=== PATIENT | male | born 1940 ===

== ENCOUNTER 2021-01-28 17:29 | Inpatient (IN) ==
[2021-01-28] MEDS ORDERED: Dexamethasone IV 4 MG/ML VIAL 1 ml VIAL IV SLOW PU ONE (17:43)
[2021-01-28] MEDS ORDERED: Al Hydrox/Mg Hydrox/Simet LIQ 30 ML UDC PO PRN (18:28)
[2021-01-28] MEDS ORDERED: Magnesium Hydroxide LIQ 30 ML UDC PO PRN (18:28)
[2021-01-28] MEDS ORDERED: Remdesivir 100 mg Vial 200 MG in NS 0.9% 250 ml 210 ML IV ONE (18:46)
[2021-01-28] MEDS ORDERED: Heparin 5000 UNITS/ML 1 mL VIAL SUBCUT SCH (22:00)
[2021-01-28 22:47] LABS: ABS Lymphocytes 0.4 10^3/ul (1.0-4.8); ABS Monocytes 0.1 10^3/ul (0-0.8); ABS Neutrophils 3.3 10^3/ul (1.5-7.7); Hematocrit 28 % (42-52); Hemoglobin 9.7 g/dL (14.0-18.0); Lymphocyte % 11.3 %; Mean Corpuscular HGB Conc 34 g/dL (31-36); Mean Corpuscular Hemoglobin 34 pg (27-31); Mean Corpuscular Volume 99 fL (80-94); Mean Platelet Volume 9.3 fL (7.4-10.4); Platelet Count 112 10^3/uL (150-450); Red Blood Count 2.87 10^6 /uL (4.18-5.48); Red Cell Distribution Width 14 % (10-15); White Blood Count 3.9 10^3/uL (3.5-10.8)
[2021-01-28 22:56] LABS: Activated Partial Thrombo Time 29.3 seconds (26.0-38.0); INR 1.09 (0.82-1.09)
[2021-01-28 23:03] LABS: ALT 15 U/L (7-52); AST 29 U/L (13-39); Albumin 3.5 g/dL (3.2-5.2); Albumin/Globulin Ratio 1.3 (1-3); Alkaline Phosphatase 75 U/L (34-104); Blood Urea Nitrogen 82 mg/dL (6-24); C Reactive Protein 47.54 mg/L (<8.01); CO2 Carbon Dioxide 23 mmol/L (22-32); Calcium 9.4 mg/dL (8.6-10.3); Chloride 103 mmol/L (101-111); EGFR African American 16.9 (>60); Globulin 2.7 g/dL (2-4); Glucose 174 mg/dL (70-100); LDH 197 U/L (140-271); Sodium 136 mmol/L (135-145); Total Protein 6.2 g/dL (6.4-8.9)
[2021-01-28 23:09] LABS: Anion Gap 10 mmol/L (2-11); Potassium 5.4 mmol/L (3.5-5.0)
[2021-01-28 23:22] LABS: Ferritin 157.1 ng/mL (24-336); Troponin I 0.05 ng/mL (<0.03)
[2021-01-28 23:36] LABS: Urine Appearance Clear; Urine Bilirubin Negative (Negative); Urine Blood 2+ (Negative); Urine Color Straw; Urine Glucose Negative (Negative); Urine Ketones Negative (Negative); Urine Nitrite Negative (Negative); Urine Protein 1+(30 mg/dL) (Negative); Urine Specific Gravity 1.009 (1.002-1.030); Urine Urobilinogen Negative (Negative)
[2021-01-28 23:52] LABS: Urine Bacteria 1+ (Absent); Urine Red Blood Cell Trace(0-2/hpf) (Absent); Urine White Blood Cell Trace(0-5/hpf) (Absent)
[2021-01-29] MEDS: Nystatin TOP POWDER 15 GM BTL TOPICAL SCH ×3 (01:52→20:48)
[2021-01-29 03:05] LABS: ABS Lymphocytes 0.6 10^3/ul (1.0-4.8); ABS Monocytes 0.1 10^3/ul (0-0.8); ABS Neutrophils 2.6 10^3/ul (1.5-7.7); Hematocrit 31 % (42-52); Hemoglobin 10.5 g/dL (14.0-18.0); Lymphocyte % 18.5 %; Mean Corpuscular HGB Conc 34 g/dL (31-36); Mean Corpuscular Hemoglobin 34 pg (27-31); Mean Corpuscular Volume 99 fL (80-94); Mean Platelet Volume 9.5 fL (7.4-10.4); Platelet Count 128 10^3/uL (150-450); Red Cell Distribution Width 14 % (10-15); White Blood Count 3.3 10^3/uL (3.5-10.8)
[2021-01-29 03:20] LABS: Albumin 3.7 g/dL (3.2-5.2); Albumin/Globulin Ratio 1.3 (1-3); C Reactive Protein 60.03 mg/L (<8.01); Calcium 9.9 mg/dL (8.6-10.3); EGFR African American 17.8 (>60); EGFR Non-African American 14.7 (>60); Globulin 2.9 g/dL (2-4); Total Bilirubin 0.3 mg/dL (0.2-1.0); Total Protein 6.6 g/dL (6.4-8.9)
[2021-01-29 03:36] LABS: Potassium 5.5 mmol/L (3.5-5.0)
[2021-01-29 03:36] LABS: Troponin I 0.03 ng/mL (<0.03)
[2021-01-29] MEDS: Dexamethasone IV 4 MG/ML VIAL 1 ml VIAL IV SLOW PU SCH (08:11)
[2021-01-29 11:11] LABS: INR 1.13 (0.82-1.09)
[2021-01-29] MEDS ORDERED: Sodium Polystyrene ORAL.SUSP 15 GM/60 ML BTL PO ONE (16:39)
[2021-01-29] MEDS ORDERED: Remdesivir 100 mg Vial 100 MG in NS 0.9% 250 ml 230 ML IV SCH (21:00)
[2021-01-30 04:54] LABS: ABS Lymphocytes 0.6 10^3/ul (1.0-4.8); ABS Monocytes 0.4 10^3/ul (0-0.8); ABS Neutrophils 3.4 10^3/ul (1.5-7.7); Hematocrit 30 % (42-52); Hemoglobin 10.4 g/dL (14.0-18.0); Lymphocyte % 13.3 %; Mean Corpuscular HGB Conc 35 g/dL (31-36); Mean Corpuscular Hemoglobin 35 pg (27-31); Mean Corpuscular Volume 100 fL (80-94); Mean Platelet Volume 9.3 fL (7.4-10.4); Platelet Count 136 10^3/uL (150-450); Red Blood Count 3.01 10^6 /uL (4.18-5.48); Red Cell Distribution Width 14 % (10-15); White Blood Count 4.4 10^3/uL (3.5-10.8)
[2021-01-30 04:58] LABS: INR 1.1 (0.82-1.09)
[2021-01-30 05:11] LABS: Albumin 3.6 g/dL (3.2-5.2); Albumin/Globulin Ratio 1.3 (1-3); C Reactive Protein 34.68 mg/L (<8.01); Calcium 10.3 mg/dL (8.6-10.3); EGFR African American 27.1 (>60); EGFR Non-African American 22.4 (>60); Globulin 2.8 g/dL (2-4); Magnesium 1.9 mg/dL (1.9-2.7); Total Bilirubin 0.3 mg/dL (0.2-1.0); Total Protein 6.4 g/dL (6.4-8.9)
[2021-01-30] MEDS: Dexamethasone IV 4 MG/ML VIAL 1 ml VIAL IV SLOW PU SCH (08:02)
[2021-01-30] MEDS: Nystatin TOP POWDER 15 GM BTL TOPICAL SCH ×2 (08:03→20:52)
[2021-01-31 05:48] LABS: ABS Lymphocytes 0.9 10^3/ul (1.0-4.8); ABS Monocytes 0.5 10^3/ul (0-0.8); ABS Neutrophils 4.9 10^3/ul (1.5-7.7); Hematocrit 30 % (42-52); Mean Corpuscular HGB Conc 34 g/dL (31-36); Mean Corpuscular Hemoglobin 34 pg (27-31); Mean Corpuscular Volume 100 fL (80-94); Mean Platelet Volume 8.5 fL (7.4-10.4); Nucleated Red Blood Cells % 0.1; Platelet Count 154 10^3/uL (150-450); Red Blood Count 2.95 10^6 /uL (4.18-5.48); Red Cell Distribution Width 14 % (10-15); White Blood Count 6.4 10^3/uL (3.5-10.8)
[2021-01-31 05:54] LABS: INR 1.14 (0.82-1.09)
[2021-01-31 06:05] LABS: Albumin 3.4 g/dL (3.2-5.2); Albumin/Globulin Ratio 1.3 (1-3); Calcium 10.1 mg/dL (8.6-10.3); EGFR African American 33.3 (>60); EGFR Non-African American 27.5 (>60); Globulin 2.6 g/dL (2-4); Magnesium 1.9 mg/dL (1.9-2.7); Potassium 4.8 mmol/L (3.5-5.0); Total Bilirubin 0.3 mg/dL (0.2-1.0)
[2021-01-31] MEDS: Albuterol HFA INHALER 8 gm MDI INH PRN (08:20)
[2021-01-31] MEDS: Dexamethasone IV 4 MG/ML VIAL 1 ml VIAL IV SLOW PU SCH (08:22)
[2021-01-31] MEDS: Nystatin TOP POWDER 15 GM BTL TOPICAL SCH ×2 (08:34→20:49)
[2021-02-01 05:57] LABS: INR 1.19 (0.82-1.09)
[2021-02-01 06:06] LABS: Albumin 3.5 g/dL (3.2-5.2); Albumin/Globulin Ratio 1.3 (1-3); Calcium 10.1 mg/dL (8.6-10.3); EGFR African American 39.5 (>60); EGFR Non-African American 32.7 (>60); Globulin 2.6 g/dL (2-4); Total Bilirubin 0.4 mg/dL (0.2-1.0); Total Protein 6.1 g/dL (6.4-8.9)
[2021-02-01] MEDS: Dexamethasone IV 4 MG/ML VIAL 1 ml VIAL IV SLOW PU SCH (08:52)
[2021-02-01] MEDS: Fluticasone NASAL SPRAY 50MCG 16 gm SPRAY BTL INTRANASAL SCH (08:53)
[2021-02-01] MEDS: Nystatin TOP POWDER 15 GM BTL TOPICAL SCH ×2 (08:53→20:50)
[2021-02-01] MEDS: Albuterol HFA INHALER 8 gm MDI INH PRN (20:52)
[2021-02-02 07:14] LABS: INR 1.18 (0.82-1.09)
[2021-02-02 07:28] LABS: Albumin 3.5 g/dL (3.2-5.2); Albumin/Globulin Ratio 1.3 (1-3); Calcium 10.4 mg/dL (8.6-10.3); EGFR African American 44.1 (>60); EGFR Non-African American 36.5 (>60); Globulin 2.7 g/dL (2-4); Potassium 4.9 mmol/L (3.5-5.0); Total Bilirubin 0.4 mg/dL (0.2-1.0); Total Protein 6.2 g/dL (6.4-8.9)
[2021-02-02] MEDS: Fluticasone NASAL SPRAY 50MCG 16 gm SPRAY BTL INTRANASAL SCH (10:36)
[2021-02-02] MEDS: Dexamethasone IV 4 MG/ML VIAL 1 ml VIAL IV SLOW PU SCH (10:37)
[2021-02-02] MEDS: Nystatin TOP POWDER 15 GM BTL TOPICAL SCH (10:37)
[2021-02-02 13:03] VITALS: BP 142/68
== END 2021-02-02 16:35 | disposition swing bed (61) ==
LOC: ED 17:29 → MED 18:28
PROVIDERS: ADMIT Hospitalist; ATTEND Internal Medicine

== ENCOUNTER 2021-02-02 16:45 | Inpatient (IN) ==
[2021-02-02] MEDS ORDERED: Al Hydrox/Mg Hydrox/Simet LIQ 30 ML UDC PO PRN (16:56)
[2021-02-02] MEDS ORDERED: Albuterol HFA INHALER 8 gm MDI INH PRN (17:09)
[2021-02-02] MEDS: Nystatin TOP POWDER 15 GM BTL TOPICAL SCH (22:13)
[2021-02-03] MEDS: Nystatin TOP POWDER 15 GM BTL TOPICAL SCH ×2 (08:38→19:29)
[2021-02-03] MEDS: Fluticasone NASAL SPRAY 50MCG 16 gm SPRAY BTL INTRANASAL SCH (08:38)
[2021-02-04 06:33] LABS: Calcium 10.2 mg/dL (8.6-10.3); EGFR Non-African American 33.9 (>60); Potassium 5.5 mmol/L (3.5-5.0)
[2021-02-04] MEDS: Fluticasone NASAL SPRAY 50MCG 16 gm SPRAY BTL INTRANASAL SCH (08:15)
[2021-02-04] MEDS: Nystatin TOP POWDER 15 GM BTL TOPICAL SCH ×2 (08:15→20:41)
[2021-02-04] MEDS ORDERED: Sodium Polystyrene ORAL.SUSP 15 GM/60 ML BTL PO ONE (08:36)
[2021-02-04 16:18] LABS: Calcium 10.1 mg/dL (8.6-10.3); EGFR African American 39.8 (>60); EGFR Non-African American 32.9 (>60); Potassium 4.9 mmol/L (3.5-5.0)
[2021-02-05 06:12] LABS: Hematocrit 30 % (42-52); Hemoglobin 9.9 g/dL (14.0-18.0); Mean Corpuscular HGB Conc 34 g/dL (31-36); Mean Corpuscular Hemoglobin 34 pg (27-31); Mean Corpuscular Volume 100 fL (80-94); Mean Platelet Volume 8.7 fL (7.4-10.4); Platelet Count 212 10^3/uL (150-450); Red Blood Count 2.96 10^6 /uL (4.18-5.48); Red Cell Distribution Width 14 % (10-15); White Blood Count 8.5 10^3/uL (3.5-10.8)
[2021-02-05 06:23] LABS: Calcium 9.5 mg/dL (8.6-10.3); EGFR African American 40.3 (>60); EGFR Non-African American 33.3 (>60); Potassium 4.4 mmol/L (3.5-5.0)
[2021-02-05 07:09] LABS: ABS Monocytes 0.6 10^3/ul (0-0.8); ABS Neutrophils 6.9 10^3/ul (1.5-7.7); Eosinophil % 0.1 %; Nucleated Red Blood Cells % 0.1
[2021-02-05] MEDS: Nystatin TOP POWDER 15 GM BTL TOPICAL SCH ×2 (10:17→21:22)
[2021-02-05] MEDS: Fluticasone NASAL SPRAY 50MCG 16 gm SPRAY BTL INTRANASAL SCH (10:18)
[2021-02-06] MEDS: Nystatin TOP POWDER 15 GM BTL TOPICAL SCH ×2 (08:32→21:45)
[2021-02-06] MEDS: Fluticasone NASAL SPRAY 50MCG 16 gm SPRAY BTL INTRANASAL SCH (08:32)
[2021-02-07] MEDS: Fluticasone NASAL SPRAY 50MCG 16 gm SPRAY BTL INTRANASAL SCH (08:30)
[2021-02-07] MEDS: Nystatin TOP POWDER 15 GM BTL TOPICAL SCH ×2 (08:31→21:19)
[2021-02-08] MEDS: Fluticasone NASAL SPRAY 50MCG 16 gm SPRAY BTL INTRANASAL SCH (09:23)
[2021-02-08] MEDS: Nystatin TOP POWDER 15 GM BTL TOPICAL SCH ×2 (09:42→20:21)
[2021-02-09] MEDS: Fluticasone NASAL SPRAY 50MCG 16 gm SPRAY BTL INTRANASAL SCH (10:26)
[2021-02-09] MEDS: Nystatin TOP POWDER 15 GM BTL TOPICAL SCH ×2 (10:26→19:57)
[2021-02-10] MEDS: Fluticasone NASAL SPRAY 50MCG 16 gm SPRAY BTL INTRANASAL SCH (07:40)
[2021-02-10] MEDS: Nystatin TOP POWDER 15 GM BTL TOPICAL SCH ×2 (07:41→21:15)
[2021-02-11] MEDS: Nystatin TOP POWDER 15 GM BTL TOPICAL SCH ×2 (07:41→21:10)
[2021-02-11] MEDS: Fluticasone NASAL SPRAY 50MCG 16 gm SPRAY BTL INTRANASAL SCH (07:41)
[2021-02-12] MEDS: Fluticasone NASAL SPRAY 50MCG 16 gm SPRAY BTL INTRANASAL SCH (09:33)
[2021-02-12] MEDS: Nystatin TOP POWDER 15 GM BTL TOPICAL SCH ×2 (09:38→21:33)
[2021-02-13] MEDS: Nystatin TOP POWDER 15 GM BTL TOPICAL SCH (07:52)
[2021-02-13] MEDS: Fluticasone NASAL SPRAY 50MCG 16 gm SPRAY BTL INTRANASAL SCH (07:52)
[2021-02-13 07:56] VITALS: BP 118/64
== END 2021-02-13 15:15 | disposition home or self-care (01) | DRG 177 ==
LOC: MED 17:02
PROVIDERS: ADMIT Internal Medicine; ATTEND Internal Medicine